=== PATIENT | male | born 1990 | race Caucasian/White ===

== ENCOUNTER 2016-09-30 00:10 | Emergency (ER) | payer SELFPAY ==
[~2016-09-30] VITALS: Ht 165.1 cm; Wt 52.2 kg
[2016-09-30 00:10] VITALS: BP 146/68
--- NOTE | 2016-09-30 00:10 | NUR ---
PT BIB [facility], PREBOOK. TAKEN TO OF
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
--- NOTE | 2016-09-30 00:28 | NUR ---
Dr. Alarcon evaluating patient
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
--- NOTE | 2016-09-30 00:35 | NUR ---
Patient discharged with v/s stable. Written and verbal after care instructions given and explained. Patient verbalized understanding. Ambulatory with steady gait. All questions addressed prior to discharge. Advised to follow up with PMD.
[2016-09-30 00:37] VITALS: BP 146/68
== END 2016-09-30 00:35 ==
LOC: MED 00:10
DX: Z02.89 Encounter for other administrative examinations (principal)
CPT/HCPCS: 99283